=== PATIENT | female | born 1940 | race Caucasian/White ===

== ENCOUNTER → 2023-05-23 13:54 | Outpatient (REF) | payer MEDICARE, OTHER, SELFPAY | LOC: HWRAD 13:54 | PROVIDERS: ATTENDING PHYSICIAN Internal Medicine | DX: M81.0 Age-related osteoporosis without current pathological fracture (principal); Z12.39 Encounter for other screening for malignant neoplasm of breast | CPT/HCPCS: 77063; 77067; 77080 ==

== ENCOUNTER → 2023-06-03 09:32 | Outpatient (REF) | payer MEDICARE, OTHER, SELFPAY ==
[2023-06-05 11:52] LABS: 24 Hour Urine Total Volume Random mL; Urine Collection Length Random hr; Urine Free Kappa Light Chains 0.64 mg/L (0.00-32.90); Urine Free Lambda Light Chains <0.74 mg/L (0.00-3.79)
[2023-06-06 01:49] LABS: Albumin 3.95 g/dL (3.75-5.01); Alpha 1 Globulin 0.31 g/dL (0.19-0.46); Alpha 2 Globulin 0.73 g/dL (0.48-1.05); SPEP IFE Reflex Not Done; Total Protein-Electrophoresis 6.4 g/dL (6.3-8.2)
== END ==
LOC: HWLAB 09:32
PROVIDERS: ATTENDING PHYSICIAN Internal Medicine; FAMILY PHYSICIAN Internal Medicine
DX: E78.2 Mixed hyperlipidemia (principal); E78.5 Hyperlipidemia, unspecified; I10 Essential (primary) hypertension; R79.89 Other specified abnormal findings of blood chemistry
CPT/HCPCS: 36415; 83521; 84155; 84156; 84165; 86335

== ENCOUNTER → 2023-07-05 08:35 | Outpatient (REF) | payer MEDICARE, OTHER, SELFPAY ==
[2023-07-05 11:04] LABS: Urine Protein 7 mg/dl (0-12)
[2023-07-05 11:33] LABS: 24 Hour Urine Creatinine 0.843 gm/day (0.8-1.8); 24 Hour Urine Total Volume 1700 ml
== END ==
LOC: REG 08:35
PROVIDERS: ATTENDING PHYSICIAN Internal Medicine; FAMILY PHYSICIAN Internal Medicine
DX: R80.9 Proteinuria, unspecified (principal)
CPT/HCPCS: 81050; 82570; 84156

== ENCOUNTER → 2023-12-05 09:35 | Outpatient (REF) | payer MEDICARE, OTHER, SELFPAY ==
[2023-12-07 20:34] LABS: Aldosterone, Serum 11.9 ng/dL; Aldosterone/Renin Activ Ratio 8.5 ratio (<=25.0); Renin Activity Results 1.4 ng/mL/hr
== END ==
LOC: HWLAB 09:35
PROVIDERS: ATTENDING PHYSICIAN Internal Medicine; FAMILY PHYSICIAN Internal Medicine
DX: I10 Essential (primary) hypertension (principal)
CPT/HCPCS: 36415; 82088; 84244

== ENCOUNTER → 2024-03-22 08:36 | Outpatient (REF) | payer MEDICARE, OTHER, SELFPAY ==
[2024-03-22 11:40] LABS: ALT (SGPT) 31 U/L (0-35); AST (SGOT) 34 U/L (14-36); Albumin 4.3 g/dl (3.5-5.0); Alkaline Phosphatase 92 U/L (38-126); Blood Urea Nitrogen 17 mg/dl (7-17); Calcium 9.7 mg/dl (8.4-10.2); Carbon Dioxide 33 mmol/L (22-30); Chloride 102 mmol/L (98-107); Glucose 88 mg/dl (70-99); HDL Cholesterol 71 mg/dl; LDL Cholesterol, Calculated 82 mg/dl; Potassium 4.4 mmol/L (3.5-5.1); Sodium 139 mmol/L (135-145); Total Bilirubin 0.8 mg/dl (0.2-1.3); Total Cholesterol 177 mg/dl (50-199); Total Protein 6.6 g/dl (6.3-8.2); Triglyceride 123 mg/dl (10-149); Very Low Density Lipoprotein 24 mg/dl (0-30); eGFR > 60.00
== END ==
LOC: HWLAB 08:36
PROVIDERS: ATTENDING PHYSICIAN Internal Medicine
DX: E78.2 Mixed hyperlipidemia (principal)
CPT/HCPCS: 36415; 80053; 80061

== ENCOUNTER → 2024-06-02 13:54 | Outpatient (REF) | payer MEDICARE, OTHER, SELFPAY | LOC: HWRCS 13:54 | PROVIDERS: ATTENDING PHYSICIAN Internal Medicine Cardiovascular Disease; FAMILY PHYSICIAN Internal Medicine | DX: I10 Essential (primary) hypertension (principal); I34.0 Nonrheumatic mitral (valve) insufficiency | CPT/HCPCS: 93306 ==

== ENCOUNTER 2024-06-27 08:31 | Emergency (ER) | payer MEDICARE, OTHER, SELFPAY ==
[2024-06-27 08:37] VITALS: BP 180/107
[2024-06-27 09:40] VITALS: BMI 22.0
[2024-06-27] MEDS: CORTISPORIN OTIC SUSPENSION 4 DROP OTIC (09:52)
--- NOTE | 2024-06-27 09:53 | ED.GENMED ---
History of Present Illness
General
Chief Complaint: Ear Problem
Source: patient and family
Exam Limitations: none
Time Seen by Provider: 06/27/24 09:04
Nursing documentation reviewed up to this point in time: agreed with
History of Present Illness
History of Present Illness:
Patient status post bilateral myringotomy procedure in April 2024, after prolonged airplane ride, presents to ED secondary to worsening bloody discharge from her ears, right greater than left, despite having finished a course of antibiotic drops,
as recommended by her ENT physician, Dr. Alfaro. Patient has a follow-up appointment with Dr. Alfaro on . Patient otherwise denies fever, nausea or vomiting, headache, or ear pain. Denies new trauma. Patient has been using Q-tips
intermittently, to wipe off the drainage at the tip of her ear canal. Denies previous history of similar symptoms.
Past History
Past History
ED Past Medical History: HTN, Hypercholesterolemia and Other (microscopic hematuria)
ED Past Surgical History: Cholecystectomy
Social History
Tobacco: Non-smoker
Alcohol: Occasional
Drug: None
Personal:
Living: with family
Employment: Retired
Family History
Family History: Other (reviewed and noncontributory)
Review of Systems
Review of Systems
Allergies reviewed?: Yes
All Other Systems: ROS reviewed and negative except as documented in HPI and ROS
Constitutional: Reports no symptoms
EENT: Reports other (Bloody ear drainage with hearing loss)
Respiratory: Reports no symptoms; Denies trouble breathing
ABD/GI: Reports no symptoms
Musculoskeletal: Reports no symptoms
Skin: Reports no symptoms
Neurological: Reports no symptoms; Denies dizzy or headache
Phy Exam
Physical Exam
Physical Exam:
Physical Exam
General: no apparent distress, not acutely ill. afebrile
Head: nc/at. eomi
Neck: supple. no meningeal signs. normal posterior pharynx. Bilateral blue ear tubes noted, with bloody content surrounding the tubes, right greater than left. no active drainage noted
Neuro: alert and oriented x 3. no focal neurological deficits
Skin: no rash
Psychiatric: well kept. interactive and cooperative
Extremities: no edema. no calf tenderness.
Course
Orders/Labs/Results
Orders:
Orders
06/27/24 09:48
Neomycin/Polymyxin/Hc [Cortisporin Otic Suspension] See Dose Instructions [facility] NOW STA
Vital Signs
Initial and Last Documented VS:
Initial Vital Signs
Temp Pulse Resp BP Pulse Ox
98.7 F 79 18 180/107 99
06/27/24 08:37 06/27/24 08:37 06/27/24 08:37 06/27/24 08:37 06/27/24 08:37
Last Documented Vital Signs
Temp Pulse Resp BP Pulse Ox
98.7 F 70 18 155/80 99
06/27/24 08:37 06/27/24 10:03 06/27/24 08:37 06/27/24 10:03 06/27/24 08:37
MDM/Problems Addressed
MDM/Problems Addressed:
Discussed with oncall ENT physician, . Recommends discharging patient home on Cortisporin otic, along with expected follow-up with her ENT physician, Dr. Alfaro this week. No indication for further studies at this time.
*Critical Care Note
Total Time (30-74mins, 75-104mins- exclusive of procedures): Not Applicable
ED Attending Note
-
Portions of this chart may have been created with voice recognition software.� Occasional wrong word or��sound alike� substitutions may have occurred due to the inherent limitations of voice recognition software.
Discharge Plan
Departure
Patient Disposition: Home (Routine Discharge)
Date of Disposition: 06/27/24
Time of Disposition: 09:58
Patient with high blood pressure during this ER visit?: Yes
Condition: Good
Discharge Problem:
Post-op bleeding
Instructions: Bleeding After Surgery
Prescriptions:
No Action
irbesartan-hydrochlorothiazide [Avalide] 1 TAB tablet
1 tab PO DAILY
docosahexaenoic acid-epa 1 CAP capsule
1 cap PO DAILY
coenzyme Y21-cyjdmes E [Co Q-10 (with Vit E)] 1 EACH capsule
1 ea PO DAILY
cnjsecgx-hyw-gmrw-FA-vit K-lut [Centrum Silver Women] 1 EACH tablet
1 ea PO DAILY
metoprolol succinate 12.5 MG tablet extended release 24 hr
12.5 mg PO DAILY
ergocalciferol (vitamin D2) 50,000 UNITS capsule
50,000 units PO WEEKLY
clopidogrel 75 MG tablet
75 mg PO DAILY Qty: 21 0RF
aspirin 81 MG tablet,delayed release (DR/EC)
81 mg PO DAILY 0RF
rosuvastatin 10 MG tablet
10 mg PO QPM Qty: 30 0RF
Referrals:
Roshni Garrison MD [Family Provider] -
Torres Alfaro MD [Active] -
Activity Restrictions/Additional Instructions:
As discussed, please follow-up with your ENT physician this week, as scheduled, for reevaluation. Until then, please continue to apply 4 drops to your right ear, 3 times a day.
Interventions
Interventions:
*Risk Screen - Suicide Last Done: 06/27/24 08:37
*General Assessment Last Done: 06/27/24 08:37
*Neglect/Abuse Screening Last Done: 06/27/24 08:37
*ED- Fall Risk Assessment Last Done: 06/27/24 09:41
*ED COVID-19 Vaccine History Last Done: 06/27/24 09:41
*Nursing Disposition Last Done: 06/27/24 10:03
Discharge Date and Time
Discharge Date/Time: 06/27/24 10:10
Print Language: SINHALA
[2024-06-27 10:03] VITALS: BP 155/80
== END 2024-06-27 10:10 | disposition home or self-care (01) ==
LOC: EMR 08:31
PROVIDERS: EMERGENCY PHYSICIAN Emergency Medicine; FAMILY PHYSICIAN Internal Medicine
DX: H95.41 Postprocedural hemorrhage of ear and mastoid process following a procedure on the ear and mastoid process (principal); Y84.8 Other medical procedures as the cause of abnormal reaction of the patient, or of later complication, without mention of misadventure at the time of the procedure; I10 Essential (primary) hypertension; E78.00 Pure hypercholesterolemia, unspecified; Z90.49 Acquired absence of other specified parts of digestive tract; Z79.82 Long term (current) use of aspirin; Z88.5 Allergy status to narcotic agent; Z88.0 Allergy status to penicillin; Z88.8 Allergy status to other drugs, medicaments and biological substances; Z88.6 Allergy status to analgesic agent; Z91.041 Radiographic dye allergy status
CPT/HCPCS: 99283

== ENCOUNTER → 2024-06-29 08:21 | Outpatient (REF) | payer MEDICARE, OTHER, SELFPAY ==
[2024-06-29 12:19] LABS: Albumin 3.8 g/dl (3.5-5.0); Blood Urea Nitrogen 16 mg/dl (7-17); Calcium 9.8 mg/dl (8.4-10.2); Carbon Dioxide 34 mmol/L (22-30); Chloride 105 mmol/L (98-107); Glucose 93 mg/dl (70-99); Phosphorus 3.5 mg/dl (2.5-4.5); Potassium 4.1 mmol/L (3.5-5.1); Sodium 143 mmol/L (135-145); eGFR > 60.00
[2024-06-29 14:09] LABS: Protein/creatinine Ratio 0.1; Urine Protein 10 mg/dl
== END ==
LOC: HWLAB 08:21
PROVIDERS: ATTENDING PHYSICIAN Internal Medicine; FAMILY PHYSICIAN Internal Medicine
DX: I10 Essential (primary) hypertension (principal)
CPT/HCPCS: 36415; 80069; 82570; 84156

== ENCOUNTER → 2025-01-19 08:08 | Outpatient (REF) | payer MEDICARE, OTHER, SELFPAY ==
[2025-01-19 12:54] LABS: ALT (SGPT) 27 U/L (0-35); AST (SGOT) 27 U/L (14-36); Albumin 4.1 g/dl (3.5-5.0); Alkaline Phosphatase 91 U/L (38-126); Blood Urea Nitrogen 17 mg/dl (7-17); Calcium 9.3 mg/dl (8.4-10.2); Carbon Dioxide 31 mmol/L (22-30); Chloride 104 mmol/L (98-107); Glucose 88 mg/dl (70-99); HDL Cholesterol 68 mg/dl; LDL Cholesterol, Calculated 84 mg/dl; Potassium 4.3 mmol/L (3.5-5.1); Sodium 139 mmol/L (135-145); Total Protein 6.5 g/dl (6.3-8.2); Very Low Density Lipoprotein 18 mg/dl (0-30); eGFR > 60.00
== END ==
LOC: HWLAB 08:08
PROVIDERS: ATTENDING PHYSICIAN Internal Medicine
DX: E78.5 Hyperlipidemia, unspecified (principal)
CPT/HCPCS: 80053; 80061